=== PATIENT | female | born 1940 | race Caucasian/White ===

== ENCOUNTER 2019-05-29 01:05 | Emergency (ER) | payer MEDICARE ==
[2019-05-29] MEDS ORDERED: ONDANSETRON HCL 4 MG/2 ML VIAL ONE (02:01)
[2019-05-29] MEDS ORDERED: METOCLOPRAMIDE 10 MG/2 ML VIAL ONE (02:20)
[2019-05-29] MEDS ORDERED: SODIUM CHLORIDE 0.9% 1000ML 1,000 ML IV ONE ×2 (02:21→04:37)
[2019-05-29] MEDS ORDERED: TAMSULOSIN HCL 0.4 MG CAP.ER.24H ONE (02:21)
[2019-05-29] MEDS ORDERED: KETOROLAC TROMETHAMINE 30MG/ML ONE (02:21)
[2019-05-29 04:38] LABS: APPEARANCE,URINE CLOUDY (CLEAR); BILIRUBIN,URINE SMALL (NEGATIVE); COLOR,URINE BROWN (YELLOW); GLUCOSE, URINE (UA) NEGATIVE (NEGATIVE); KETONES,URINE 5 mg/dL (NEGATIVE); LEUKOCYTE ESTERASE ,URINE TRACE (NEGATIVE); NITRATE,URINE POSITIVE (NEGATIVE); OCCULT BLOOD,URINE LARGE (NEGATIVE); PROTEIN,URINE 100 mg/dL (NEGATIVE)
[2019-05-29 04:39] LABS: RBC,URINE >100 /HPF (0-1)
[2019-05-29 04:40] LABS: BACTERIA,URINE Moderate /HPF (None Seen); CALCIUM OXALATE CRYSTALS,UR Few /LPF (None Seen)
[2019-05-29 04:41] LABS: INR 1.02 (0.85-1.15); PROTHROMBIN TIME 10.7 SEC (9.6-11.6)
[2019-05-29 04:42] LABS: BASOPHILS % (AUTO) 0.3 % (0.0-5.0); EOSINOPHILS % (AUTO) 1.6 % (0.0-8.0); LYMPHOCYTES % (AUTO) 22.9 % (21.0-51.0); MEAN CORPUSCULAR HEMOGLOBIN 31.5 pg (27.0-33.0); MEAN CORPUSCULAR HGB CONC 33.7 g/dL (32.0-36.0); MEAN CORPUSCULAR VOLUME 93.3 fL (79-99); MONOCYTES % (AUTO) 9.4 % (3.0-13.0); NEUTROPHILS % (AUTO) 65.8 % (40.0-77.0); NUCLEATED RED BLOOD CELLS 0.2 % (0.0-0.19); PLATELET COUNT (AUTO) 262 K/uL (130-400); RED BLOOD CELL COUNT(AUTO) 4.29 MIL/uL (4.00-5.50); RED CELL DISTRIBUTION WIDTH 13.8 % (11.0-15.5); WHITE BLOOD COUNT (AUTO) 8.4 K/uL (4.8-10.8)
[2019-05-29 04:43] LABS: ALBUMIN 3.6 g/dL (3.5-5.0); BILIRUBIN,TOTAL 0.5 mg/dL (0.2-1.0); CREATININE 0.9 mg/dL (0.5-1.5); POTASSIUM 3.6 mmol/L (3.5-5.1); TOTAL PROTEIN, SERUM 7.1 g/dL (6.0-8.3)
== END 2019-05-29 05:40 | disposition home or self-care (01) ==
LOC: EDH 01:05
DX: N23 Unspecified renal colic (principal); N20.1 Calculus of ureter; E78.5 Hyperlipidemia, unspecified; I10 Essential (primary) hypertension; E89.0 Postprocedural hypothyroidism; Z90.49 Acquired absence of other specified parts of digestive tract; Z87.442 Personal history of urinary calculi; Z86.000 Personal history of in-situ neoplasm of breast; Z98.1 Arthrodesis status; Z90.710 Acquired absence of both cervix and uterus; Z88.2 Allergy status to sulfonamides; Z88.0 Allergy status to penicillin
CPT/HCPCS: 36415; 74176; 80053; 81001; 82550; 83605; 84484; 85025; 85610; 85730; 87088; 99285; J1885; J2405; J2765; J7030 ×2

== ENCOUNTER 2022-05-31 11:56 | Inpatient (IN) | payer MEDICARE ==
[~2022-05-31] VITALS: Ht 160 cm; Wt 83.3 kg
[2022-05-31 12:27] LABS: APPEARANCE,URINE CLEAR (CLEAR); BILIRUBIN,URINE NEGATIVE (NEGATIVE); COLOR,URINE COLORLESS (YELLOW); GLUCOSE, URINE (UA) NEGATIVE (NEGATIVE); KETONES,URINE NEGATIVE (NEGATIVE); LEUKOCYTE ESTERASE ,URINE 250 Leu/uL (NEGATIVE); NITRATE,URINE NEGATIVE (NEGATIVE); OCCULT BLOOD,URINE NEGATIVE (NEGATIVE); PROTEIN,URINE NEGATIVE (NEGATIVE); UROBILINOGEN,URINE 0.2 mg/dL (0.2-1.0)
[2022-05-31] MEDS ORDERED: PHENAZOPYRIDINE HCL 200 MG TABLET PO ONE (12:30)
[2022-05-31 12:39] LABS: BACTERIA,URINE RARE /HPF (None Seen); MUCUS,URINE RARE LPF (None Seen); SQUAMOUS EPITHELIAL CELL,UR RARE /HPF (0-2)
[2022-05-31 12:44] LABS: BASOPHILS % (AUTO) 0.1 % (0.0-5.0); HEMATOCRIT 43.3 % (36-48); LYMPHOCYTES % (AUTO) 7.2 % (21.0-51.0); MEAN CORPUSCULAR HEMOGLOBIN 30.1 pg (27.0-33.0); MEAN CORPUSCULAR VOLUME 91.2 fL (79-99); NEUTROPHILS % (AUTO) 86.2 % (40.0-77.0); PLATELET COUNT (AUTO) 272 K/uL (130-400); RED BLOOD CELL COUNT(AUTO) 4.75 MIL/uL (4.00-5.50); RED CELL DISTRIBUTION WIDTH 14.4 % (11.0-15.5); WHITE BLOOD COUNT (AUTO) 14.1 K/uL (4.8-10.8)
[2022-05-31 12:51] LABS: CREATININE 0.8 mg/dL (0.5-1.5); POTASSIUM 4.4 mmol/L (3.5-5.1)
[2022-05-31 12:55] LABS: ALBUMIN 3.3 g/dL (3.5-5.0); CRP QUANTITATIVE 60.2 mg/L (0.00-9.0); TOTAL PROTEIN, SERUM 7.7 g/dL (6.0-8.3)
[2022-05-31] MEDS ORDERED: ZOSYN 3.375GM +NS 50ML IV ONE (14:30)
[2022-05-31] MEDS ORDERED: ZOSYN 3.375GM+NS 50ML 50 ML ONE (14:38)
[2022-05-31] MEDS ORDERED: HYDRALAZINE 20MG/ML VIAL IV PRN (15:30)
[2022-05-31] MEDS ORDERED: FLUCONAZOLE 400 MG/NS 200 ML IV SCH (15:30)
[2022-05-31] MEDS ORDERED: LACTULOSE 20 GM/30 ML UDCUP PO PRN (15:30)
[2022-05-31] MEDS ORDERED: LABETALOL 20MG SYG IV PRN (15:30)
[2022-05-31] MEDS ORDERED: ACETAMINOPHEN 325 MG TAB PO PRN (15:30)
[2022-05-31] MEDS ORDERED: ONDANSETRON 4MG INJ IVP PRN (15:30)
[2022-05-31] MEDS: CEFEPIME HCL 2 GM VIAL IVP SCH (16:17)
[2022-05-31] MEDS: LACTATED RINGERS 1000ML 1,000 ML IV SCH (16:17)
[2022-05-31] MEDS: INSULIN HUMULIN R 100 UNIT/ML 3ML SQ SCH ×2 (16:18→20:50)
[2022-05-31 18:17] VITALS: BP 143/67
[2022-05-31] MEDS: IPRATROPIUM 0.5 MG/2.5 ML INH IH SCH ×2 (18:33→23:24)
[2022-05-31] MEDS ORDERED: PSEU-225 PO (18:36)
[2022-05-31] MEDS ORDERED: OMEP20CA12 PO (18:36)
[2022-05-31] MEDS ORDERED: FLUT16H NASAL (18:36)
[2022-05-31] MEDS ORDERED: METO-408 PO (18:36)
[2022-05-31] MEDS ORDERED: CHOL400T33 PO (18:36)
[2022-05-31] MEDS ORDERED: EZET10TA48 PO (18:36)
[2022-05-31] MEDS ORDERED: LEVO125T11 PO (18:36)
[2022-05-31] MEDS ORDERED: CYAN10007 SQ (18:36)
[2022-05-31] MEDS ORDERED: SOTA80TA PO (18:36)
[2022-05-31] MEDS ORDERED: APIX5TAB PO (18:36)
[2022-05-31] MEDS ORDERED: CALC-190 PO (18:36)
[2022-05-31] MEDS ORDERED: CYCL30DR OU (18:36)
[2022-05-31] MEDS ORDERED: FAMOTIDINE 20MG VIAL IV ONE (20:46)
[2022-05-31] MEDS ORDERED: METRONIDAZOLE 500MG/100ML BAG 100 ML ONE (20:46)
[2022-05-31 20:48] VITALS: BP 154/73
[2022-05-31] MEDS: METRONIDAZOLE 500MG/100ML BAG 100 ML IVPB SCH (20:56)
[2022-06-01 00:17] VITALS: BP 122/61
[2022-06-01] MEDS: CEFEPIME HCL 2 GM VIAL IVP SCH (02:22)
[2022-06-01 03:58] VITALS: BP 128/77
[2022-06-01 04:51] LABS: BASOPHILS % (AUTO) 0.1 % (0.0-5.0); EOSINOPHILS % (AUTO) 0.5 % (0.0-8.0); HEMATOCRIT 38.2 % (36-48); LYMPHOCYTES % (AUTO) 13.3 % (21.0-51.0); MEAN CORPUSCULAR HGB CONC 32.7 g/dL (32.0-36.0); MEAN CORPUSCULAR VOLUME 91.8 fL (79-99); NEUTROPHILS % (AUTO) 78.6 % (40.0-77.0); PLATELET COUNT (AUTO) 256 K/uL (130-400); RED BLOOD CELL COUNT(AUTO) 4.16 MIL/uL (4.00-5.50); RED CELL DISTRIBUTION WIDTH 14.4 % (11.0-15.5); WHITE BLOOD COUNT (AUTO) 10.9 K/uL (4.8-10.8)
[2022-06-01 04:59] LABS: CREATININE 0.6 mg/dL (0.5-1.5); MAGNESIUM 1.9 mg/dL (1.80-2.40); PHOSPHORUS 2.6 mg/dL (2.5-4.9); POTASSIUM 3.7 mmol/L (3.5-5.1)
[2022-06-01 05:12] LABS: PROTHROMBIN TIME 10.9 SEC (9.6-11.6)
[2022-06-01 05:14] LABS: PARTIAL THROMBOPLASTIN TIME 30.4 SEC (26.3-35.5)
[2022-06-01] MEDS: LACTATED RINGERS 1000ML 1,000 ML IV SCH (05:46)
[2022-06-01] MEDS: METRONIDAZOLE 500MG/100ML BAG 100 ML IVPB SCH ×2 (05:47→14:52)
[2022-06-01] MEDS: INSULIN HUMULIN R 100 UNIT/ML 3ML SQ SCH ×2 (05:50→11:30)
[2022-06-01] MEDS: IPRATROPIUM 0.5 MG/2.5 ML INH IH SCH ×2 (06:00→11:47)
[2022-06-01 08:00] VITALS: BP 152/73
[2022-06-01] MEDS ORDERED: FAMOTIDINE 20MG VIAL IV SCH (09:00)
[2022-06-01 12:00] VITALS: BP 131/63
[2022-06-01 16:00] VITALS: BP 135/63
[2022-06-01] MEDS ORDERED: METR-172 PO (16:03)
[2022-06-01] MEDS ORDERED: LEVO-70 PO (16:03)
== END 2022-06-01 19:20 | disposition home or self-care (01) | DRG 392 ==
LOC: EDH 11:56 → EDHIP 15:30 → 4DH 18:00
PROVIDERS: ADMIT Internal Medicine Critical Care Medicine; ATTEND Internal Medicine Critical Care Medicine
DX: K57.20 Diverticulitis of large intestine with perforation and abscess without bleeding (principal); N39.0 Urinary tract infection, site not specified; I48.20 Chronic atrial fibrillation, unspecified; I50.9 Heart failure, unspecified; I11.0 Hypertensive heart disease with heart failure; E89.0 Postprocedural hypothyroidism; I25.10 Atherosclerotic heart disease of native coronary artery without angina pectoris; E78.5 Hyperlipidemia, unspecified; Z90.710 Acquired absence of both cervix and uterus; Z87.442 Personal history of urinary calculi
CPT/HCPCS: 36415; 71045; 74176; 80048; 80053; 81001; 82948; 83605; 83735; 84100; 84145; 84484; 85025; 85610; 85730; 86140; 86850; 86900; 86901; 87040; 87088; 93005; 94640; 94664; G0378; J0692; J1450; J2543; J3490; J7120

== ENCOUNTER 2022-08-30 15:43 | Emergency (ER) | payer MEDICARE ==
[~2022-08-30] VITALS: Ht 160 cm; Wt 77.6 kg
[~2022-08-30 15:43] MED LIST: APIX5TAB PO; CALC-190 PO; CHOL400T33 PO; CYAN10007 SQ; CYCL30DR OU; EZET10TA48 PO; FLUT16H NASAL; LEVO-70 PO; LEVO125T11 PO; METO-408 PO; METR-172 PO; OMEP20CA12 PO; PSEU-225 PO; SOTA80TA PO
[2022-08-30 16:30] LABS: BASOPHILS % (AUTO) 0.3 % (0.0-5.0); EOSINOPHILS % (AUTO) 1.8 % (0.0-8.0); HEMATOCRIT 40.5 % (36-48); LYMPHOCYTES % (AUTO) 26.1 % (21.0-51.0); MEAN CORPUSCULAR HEMOGLOBIN 31.2 pg (27.0-33.0); MEAN CORPUSCULAR HGB CONC 33.1 g/dL (32.0-36.0); MEAN CORPUSCULAR VOLUME 94.2 fL (79-99); MONOCYTES % (AUTO) 7.5 % (3.0-13.0); NEUTROPHILS % (AUTO) 64.1 % (40.0-77.0); PLATELET COUNT (AUTO) 272 K/uL (130-400); RED CELL DISTRIBUTION WIDTH 13.6 % (11.0-15.5); WHITE BLOOD COUNT (AUTO) 9.2 K/uL (4.8-10.8)
[2022-08-30 16:40] LABS: CREATININE 0.7 mg/dL (0.5-1.5); POTASSIUM 3.2 mmol/L (3.5-5.1)
[2022-08-30 16:52] LABS: ALBUMIN 3.1 g/dL (3.5-5.0); TOTAL PROTEIN, SERUM 6.9 g/dL (6.0-8.3)
[2022-08-30] MEDS ORDERED: POTASSIUM BICARB/CIT AC 25 MEQ TABLET.EFF PO ONE (18:30)
[2022-08-30 19:14] VITALS: BP 135/54
== END 2022-08-30 19:52 | disposition home or self-care (01) ==
LOC: EDH 15:43
DX: E87.6 Hypokalemia (principal); I48.91 Unspecified atrial fibrillation; E66.9 Obesity, unspecified; E03.9 Hypothyroidism, unspecified; Z88.0 Allergy status to penicillin; Z88.2 Allergy status to sulfonamides; Z88.8 Allergy status to other drugs, medicaments and biological substances; Z90.49 Acquired absence of other specified parts of digestive tract; Z98.890 Other specified postprocedural states; Z79.899 Other long term (current) drug therapy
CPT/HCPCS: 36415; 71045; 80053; 83880; 84484; 85025; 93005